=== PATIENT | female | born 1955 | race Caucasian/White ===

== ENCOUNTER 2018-05-13 12:46 | Outpatient (CLI) | payer OTHER ==
[~2018-05-13 12:46] MED LIST: LIDOCAINE-MPF 1%, 5ML ONE
== END 2018-05-13 23:59 | disposition home or self-care (01) ==
LOC: RAD 12:46
PROVIDERS: ATTEND Otolaryngology
DX: E04.1 Nontoxic single thyroid nodule (principal)
CPT/HCPCS: 10005; 76942; 88173

== ENCOUNTER 2018-09-01 12:41 | Outpatient (CLI) | payer OTHER ==
[2018-09-01] MEDS ORDERED: LIDOCAINE-MPF 1%, 5ML ONE (12:47)
== END 2018-09-01 23:59 | disposition home or self-care (01) ==
LOC: RAD 12:41
PROVIDERS: ATTEND Otolaryngology
DX: E04.1 Nontoxic single thyroid nodule (principal); Z72.89 Other problems related to lifestyle; Z79.899 Other long term (current) drug therapy; Z82.5 Family history of asthma and other chronic lower respiratory diseases; Z82.49 Family history of ischemic heart disease and other diseases of the circulatory system
CPT/HCPCS: 10005; 88172; 88173

== ENCOUNTER 2018-10-22 09:40 | Outpatient (CLI) | payer OTHER ==
[2018-10-22] MEDS ORDERED: VITA400C43 PO (10:06)
[2018-10-22] MEDS ORDERED: MULT-658 PO (10:06)
[2018-10-22] MEDS ORDERED: rhodiola PO (10:06)
[2018-10-22] MEDS ORDERED: ASCO125T PO (10:06)
[2018-10-22] MEDS ORDERED: ESTR1PAT25 TD (10:06)
[2018-10-22] MEDS ORDERED: PROG100C16 PO (10:06)
[2018-10-22] MEDS ORDERED: BLACK CURRANT OIL PO (10:06)
[2018-10-22] MEDS ORDERED: CALC-534 PO (10:06)
== END 2018-10-22 23:59 | disposition home or self-care (01) ==
LOC: STAR 09:40
PROVIDERS: ATTEND Specialist
DX: Z01.818 Encounter for other preprocedural examination (principal); E04.2 Nontoxic multinodular goiter
CPT/HCPCS: 93005

== ENCOUNTER 2018-10-28 10:32 | Day surgery (SDC) | payer OTHER ==
[~2018-10-28] VITALS: Ht 172.7 cm; Wt 68.0 kg
[~2018-10-28 10:32] MED LIST changes: +ASCO125T PO; +BLACK CURRANT OIL PO; +CALC-534 PO; +ESTR1PAT25 TD; -LIDOCAINE-MPF 1%, 5ML ONE; +MULT-658 PO; +PROG100C16 PO; +VITA400C43 PO; +rhodiola PO
[2018-10-28] MEDS ORDERED: LACTATED RINGERS 1,000 ML IV SCH (10:54)
[2018-10-28] MEDS ORDERED: FENTANYL PF 250 MCG/5ML ONE (12:48)
[2018-10-28] MEDS ORDERED: MIDAZOLAM 1 MG/ML, 2ML ONE (12:48)
[2018-10-28] MEDS ORDERED: GLYCOPYRROLATE 0.2MG/1ML, 5ML ONE (12:52)
[2018-10-28] MEDS ORDERED: PROPOFOL 10 MG/ML, 20ML ONE (12:52)
[2018-10-28] MEDS ORDERED: SUCCINYLCHOLINE 20 MG/ML, 10ML ONE (12:52)
[2018-10-28] MEDS ORDERED: ROCURONIUM 10MG/ML,5ML ONE (12:52)
[2018-10-28] MEDS ORDERED: DEXAMETHASONE 4 MG/ML, 1ML ONE (12:52)
[2018-10-28] MEDS ORDERED: CEFAZOLIN 1,000 MG ONE (12:52)
[2018-10-28] MEDS ORDERED: NEOSTIGMINE 1 MG/ML, 10ML ONE (12:52)
[2018-10-28] MEDS ORDERED: ONDANSETRON 2MG/ML, 2ML ONE (12:52)
[2018-10-28] MEDS ORDERED: LIDOCAINE 1%-EPI 1:100K, 20ML ONE (13:00)
[2018-10-28] MEDS ORDERED: SCOPOLAMINE PATCH, 1.5MG PATCH.TD72 TD ONE (13:03)
[2018-10-28] MEDS ORDERED: PROMETHAZINE 25 MG/ML, 1ML IV PRN (13:30)
[2018-10-28] MEDS ORDERED: LABETALOL 5MG/ML, 20ML IV PRN (13:30)
[2018-10-28] MEDS ORDERED: PROMETHAZINE 12.5 MG SUPP PR PRN (13:30)
[2018-10-28] MEDS ORDERED: PROMETHAZINE 25 MG SUPP PR PRN (13:30)
[2018-10-28] MEDS ORDERED: hydrALAzine 20 MG/ML, 1ML IV PRN (13:30)
[2018-10-28] MEDS ORDERED: PROMETHAZINE 25 MG/ML, 1ML IM PRN ×2 (13:30)
[2018-10-28] MEDS ORDERED: OXYcodone 5 MG/5 ML ORAL.SOL UDC PO PRN (13:30)
[2018-10-28] MEDS ORDERED: ONDANSETRON ODT 8 MG PO PRN (13:30)
[2018-10-28] MEDS ORDERED: MORPHINE SULFATE 4 MG/ML, 1ML IVPush PRN (13:30)
[2018-10-28] MEDS ORDERED: HYDROmorphone 2 MG/ML, 1ML IVPush PRN (13:30)
[2018-10-28] MEDS ORDERED: ACETAMINOPHEN 325 MG TABLET PO PRN (13:30)
[2018-10-28] MEDS ORDERED: ONDANSETRON 2MG/ML, 2ML IV PRN (13:30)
[2018-10-28] MEDS ORDERED: HALOPERIDOL 5 MG/ML IV PRN (13:30)
[2018-10-28] MEDS ORDERED: MEPERIDINE/PF 25MG/0.5ML IVPush PRN (13:30)
[2018-10-28] MEDS ORDERED: ACETAMINOPHEN 650 MG/20.3 ML UDC ONE (15:17)
[2018-10-28] MEDS ORDERED: OXYcodone 5 MG/5 ML ORAL.SOL UDC ONE (15:43)
[2018-10-28] MEDS ORDERED: FENTANYL PF 100 MCG/2ML ONE (15:43)
[2018-10-28] MEDS: FENTANYL PF 100 MCG/2ML IV PRN ×4 (15:44→16:05)
== END 2018-10-28 17:30 | disposition home or self-care (01) ==
LOC: OUT 10:32
PROVIDERS: ATTEND Specialist
DX: E04.2 Nontoxic multinodular goiter (principal); Z72.89 Other problems related to lifestyle; Z79.899 Other long term (current) drug therapy; Z80.9 Family history of malignant neoplasm, unspecified; Z82.5 Family history of asthma and other chronic lower respiratory diseases
CPT/HCPCS: 60220; 88307; 88333; 88334; J0330; J0690; J1100; J2250; J2405; J2704; J2710; J3010; J3490; J7120